=== PATIENT | female | born 1990 | race Caucasian/White ===

== ENCOUNTER 2020-07-06 19:24 | Emergency (ER) | payer OTHER ==
[~2020-07-06] VITALS: Ht 154.9 cm; Wt 63.5 kg
[2020-07-06] MEDS ORDERED: CETI-90 PO (19:32)
[2020-07-06] MEDS ORDERED: IV NORMAL SALINE 1000 ML BAG IV ONE (19:45)
[2020-07-06] MEDS ORDERED: FAMOTIDINE. 20 MG/2 ML VIAL IV ONE ×2 (19:45→19:52)
[2020-07-06] MEDS ORDERED: MAG HYDROX/AL HYDROX/SIMETH 30 ML LIQUID UDC PO ONE (19:45)
[2020-07-06] MEDS ORDERED: MAG HYDROX/AL HYDROX/SIMETH 30 ML LIQUID UDC ONE (19:52)
[2020-07-06 20:10] LABS: BASOPHILS % (AUTO) 0.4 % (0.0-2.0); EOSINOPHILS # (AUTO) 0.1 K/uL (0.0-0.7); EOSINOPHILS % (AUTO) 1.1 % (0.0-7.0); HEMATOCRIT 39.5 % (31.2-41.9); HEMOGLOBIN 13.4 g/dL (10.9-14.3); LYMPHOCYTES # (AUTO) 3.3 K/uL (20.0-40.0); LYMPHOCYTES % (AUTO) 29.2 % (20.5-51.5); MEAN CORPUSCULAR HEMOGLOBIN 29.5 uug (24.7-32.8); MEAN CORPUSCULAR HGB CONC 34 g/dL (32.3-35.6); MEAN CORPUSCULAR VOLUME 86.7 fL (75.5-95.3); MONOCYTES # (AUTO) 0.6 K/uL (2.0-10.0); MONOCYTES % (AUTO) 5.1 % (0.0-11.0); NEUTROPHILS # (AUTO) 7.3 K/uL (1.8-8.9); NEUTROPHILS % (AUTO) 64.2 % (38.5-71.5); PLATELET COUNT (AUTO) 261 K/uL (179-408); RED BLOOD CELL COUNT(AUTO) 4.55 MIL/uL (3.63-4.92); WHITE BLOOD COUNT (AUTO) 11.3 K/uL (3.8-11.8)
[2020-07-06 20:23] LABS: BILIRUBIN,DIRECT 0.2 mg/dL (0.0-0.2); BILIRUBIN,TOTAL 0.5 mg/dL (0.2-1.0); TOTAL PROTEIN, SERUM 7.9 g/dL (6.4-8.2)
[2020-07-06 20:28] LABS: CREATININE 0.8 mg/dL (0.6-1.3)
[2020-07-06] MEDS ORDERED: POTASSIUM CHLORIDE 20 MEQ TAB.PRT.SR ONE (20:38)
[2020-07-06 20:54] LABS: *URINE HCG, QUAL NEGATIVE (NEGATIVE)
[2020-07-06] MEDS ORDERED: POTASSIUM CHLORIDE 20 MEQ TAB.PRT.SR PO ONE (21:00)
--- NOTE | 2020-07-06 21:07 | NUR ---
Patient discharged to home in stable condition. Written and verbal after care instructions given. Patient verbalizes understanding of instructions. Stressed follow up or return to ER for worsening s/s. Ambulated from ER with stable gait. All belongings with patient. VSS
[2020-07-06 21:10] VITALS: BP 128/77
== END 2020-07-06 21:10 | disposition home or self-care (01) ==
LOC: ER 19:24
DX: R07.9 Chest pain, unspecified (principal); E87.6 Hypokalemia; R09.89 Other specified symptoms and signs involving the circulatory and respiratory systems; E87.1 Hypo-osmolality and hyponatremia; Z82.49 Family history of ischemic heart disease and other diseases of the circulatory system
CPT/HCPCS: 36415; 71045; 80048; 80076; 83690; 84484; 84703; 85025; 93005; 99285; J3490; 70030-TC; A4663; J7030

== ENCOUNTER 2021-07-08 08:53 | Emergency (ER) | payer OTHER ==
[~2021-07-08] VITALS: Ht 154.9 cm; Wt 63.5 kg
[~2021-07-08 08:53] MED LIST: CETI-90 PO
--- NOTE | 2021-07-08 09:09 | NUR ---
at bedside for assessment
[2021-07-08] MEDS ORDERED: ONDANSETRON 4 MG/2 ML VIAL IV PRN (09:15)
[2021-07-08] MEDS ORDERED: MORPHINE SULFATE 4 MG/1 ML DISP.SYRIN IV ONE (09:15)
[2021-07-08] MEDS ORDERED: ONDANSETRON 4 MG/2 ML VIAL ONE (09:24)
[2021-07-08] MEDS ORDERED: MORPHINE SULFATE 4 MG/1 ML DISP.SYRIN ONE (09:24)
[2021-07-08 09:42] LABS: HEMATOCRIT 39.9 % (31.2-41.9); PLATELET COUNT (AUTO) 245 K/uL (179-408)
--- NOTE | 2021-07-08 10:00 | NUR ---
Ultrasound noted at bedside at this time
[2021-07-08 10:08] LABS: CREATININE 0.6 mg/dL (0.6-1.3); POTASSIUM 3.8 mmol/L (3.5-5.1)
[2021-07-08 10:09] LABS: *BILIRUBIN,URIN NEGATIVE (NEGATIVE); *BLOOD, URINE NEGATIVE (NEGATIVE); *CLARITY,URINE CLEAR (CLEAR); *COLOR,URINE YELLOW (YELLOW); *KETONES,URINE NEGATIVE (NEGATIVE); *URINE HCG, QUAL NEGATIVE (NEGATIVE); *UROBILINOGEN,URINE 0.2 E.U./dl (NORMAL); LEUKOCYTE ESTERASE ,URINE NEGATIVE (NEGATIVE); NITRITE, URINE NEGATIVE (NEGATIVE); PH,URINE 5.5 (5.0-8.0); UGLUCOSE NEGATIVE (NEGATIVE)
[2021-07-08 10:14] LABS: BILIRUBIN,TOTAL 0.2 mg/dL (0.2-1.0); TOTAL PROTEIN, SERUM 7.3 g/dL (6.4-8.2)
--- NOTE | 2021-07-08 10:20 | NUR ---
Patient states her painlevel is at a 0/10 after recieving pain medication
[2021-07-08] MEDS ORDERED: IOHEXOL 300MG/ML 100 ML INFUS..BTL ONE (10:44)
[2021-07-08] MEDS ORDERED: IV NORMAL SALINE 250 ML IV ONE (10:44)
[2021-07-08] MEDS ORDERED: SWABABLE VALVE TRANSFER SET EA MC ONE (10:44)
--- NOTE | 2021-07-08 10:57 | NUR ---
Patient returned from ct at this time
--- NOTE | 2021-07-08 11:48 | NUR ---
Patient discharged to home in stable condition. No signs of acute distress noted. Written and verbal after care instructions given. Patient verbalizes understanding of instructions. Stressed follow up or return to ER for worsening s/s.
[2021-07-08 12:07] VITALS: BP 121/75
== END 2021-07-08 12:00 | disposition home or self-care (01) ==
LOC: ER 08:53
DX: R10.31 Right lower quadrant pain (principal); Z88.0 Allergy status to penicillin
CPT/HCPCS: 36415; 74177; 76856; 80053; 81003; 83690; 84703; 85025; 96374; 96375; 99285; J2270; J2405; Q9967; A4663; J7050

== ENCOUNTER 2021-10-12 03:11 | Emergency (ER) | payer OTHER ==
[~2021-10-12] VITALS: Ht 154.9 cm; Wt 63.5 kg
[2021-10-12 05:34] LABS: *URINE HCG, QUAL NEGATIVE (NEGATIVE)
[2021-10-12] MEDS ORDERED: DEXAMETHASONE SOD PHOSPHATE 4 MG INJ IM ONE (06:00)
[2021-10-12] MEDS ORDERED: DEXAMETHASONE SOD PHOSPHATE 10 MG INJ ONE (06:18)
--- NOTE | 2021-10-12 06:20 | NUR ---
Patient discharged to home in stable condition. Written and verbal after care instructions given. Patient verbalizes understanding of instructions. Stressed follow up or return to ER for worsening s/s.
[2021-10-12 06:53] VITALS: BP 115/75
== END 2021-10-12 06:54 | disposition home or self-care (01) ==
LOC: ER 03:15
DX: J02.9 Acute pharyngitis, unspecified (principal); Z88.0 Allergy status to penicillin
CPT/HCPCS: 84703; 86403; 87070; 96372; 99283; J1100; A4663

== ENCOUNTER 2021-10-24 06:52 | Emergency (ER) | payer OTHER ==
[~2021-10-24] VITALS: Ht 154.9 cm; Wt 63.5 kg
--- NOTE | 2021-10-24 07:50 | NUR ---
Dr Cardenas at the bedside for MSE.
== END 2021-10-24 08:00 | disposition home or self-care (01) ==
LOC: ER 06:57
DX: J02.8 Acute pharyngitis due to other specified organisms (principal)
CPT/HCPCS: 86403; 87070; A4663